=== PATIENT | male | born 2000 | race African-American/Black ===

== ENCOUNTER 2021-02-24 17:22 | Emergency (ER) | payer OTHER ==
[~2021-02-24 17:22] MED LIST: CLARITIN10 MG PO; IBUPROFEN 600600 M1 PO; IBUPROFEN 800800 M1 PO; NOHOMEMEDICATIONS
[2021-02-24 18:03] VITALS: BP 136/85
== END 2021-02-24 19:30 | disposition home or self-care (01) ==
LOC: ER 17:22
PROVIDERS: Physician Assistant
DX: U07.1 COVID-19 (principal)